=== PATIENT | male | born 1990 | race Caucasian/White ===

== ENCOUNTER 2017-03-24 16:02 | Emergency (ER) | payer OTHER ==
[~2017-03-24] VITALS: Ht 180.3 cm; Wt 113.4 kg
== END 2017-03-24 17:22 | disposition home or self-care (01) ==
LOC: ED 16:02
DX: F32.9 Major depressive disorder, single episode, unspecified (principal); Z88.1 Allergy status to other antibiotic agents

== ENCOUNTER → 2023-05-13 | Outpatient (CLI) | payer OTHER ==
[2023-05-13 11:14] LABS: BILIRUBIN Negative (Negative); BLOOD Negative (Negative); CLARITY Clear (Clear); COLOR Yellow (Yellow); GLUCOSE Negative (Negative); KETONE Negative (Negative); LEUKO ESTERASE Negative (Negative); NITRITE Negative (Negative); SPECIFIC GRAVITY 1.025 (1.001-1.030); UROBILINOGEN 0.2 E.U./dl (0.0-1.0)
[2023-05-13 11:35] LABS: ALKALINE PHOSPHATASE 84 U/L (46-116); BUN 10 mg/dl (9-23); CHLORIDE 104 mmol/L (98-107); POTASSIUM 3.9 mmol/L (3.4-5.1); SGPT/ALT 63 U/L (5-49); TOTAL PROTEIN 7.5 gm/dL (6.0-8.0)
== END | disposition home or self-care (01) ==
LOC: LAB 10:50
PROVIDERS: ATTEND Internal Medicine
DX: E11.9 Type 2 diabetes mellitus without complications (principal); E55.9 Vitamin D deficiency, unspecified; E78.5 Hyperlipidemia, unspecified; E34.9 Endocrine disorder, unspecified

== ENCOUNTER → 2023-05-15 | Outpatient (CLI) | payer OTHER ==
[2023-05-15 11:00] LABS: CHOLESTEROL 181 mg/dL (<200); LDL CHOLESTEROL 87 mg/dL (9-159); TRIGLYCERIDES 272 mg/dl (<150)
== END | disposition home or self-care (01) ==
LOC: LAB 01:34
PROVIDERS: ATTEND Internal Medicine
DX: E11.9 Type 2 diabetes mellitus without complications (principal); E55.9 Vitamin D deficiency, unspecified; E78.5 Hyperlipidemia, unspecified; E34.9 Endocrine disorder, unspecified